=== PATIENT | female | born 1980 | race Caucasian/White ===

== ENCOUNTER → 2018-11-16 | Outpatient (CLI) | payer BC ==
--- NOTE | 2018-11-16 09:38 | CT ---
EXAMINATION TYPE: CT abdomen wo con DATE OF EXAM: 11/16/2018 COMPARISON: None HISTORY: 38-year-old female right lower quadrant pain, Right mid abdominal pain TECHNIQUE: Contiguous axial scanning of the abdomen without IV contrast. Coronal and sagittal reconst ructions performed. CT DLP: 1263.2 mGycm Automated exposure control for dose reduction was used. FINDINGS: Heart normal size without pericardial effusion. Lung bases clear without pleural effusion. Liver borderline in size measuring 17.1 cm. There may be a degree of underlying mild fatty infiltrati on. Gallbladder measures at the upper limits of normal in caliber at 3.8 cm wide. No surrounding inflamma tion. Adrenal glands, kidneys, and pancreas appear within normal limits. Spleen mildly enlarged at 14.6 cm with anterior splenule. No dilated small bowel, free fluid, or free air. There is mild central caroline mesentery, axial image 43. Some prominent left paramedian mesenteric lymp h nodes in the upper mid abdomen measuring up to 6 mm. There is some mild fat stranding also seen adjacent to the cecum but no abnormal wall thickening seen in this region. The pelvis is not included on this exam. Bones: No osseous destructive process. IMPRESSION: 1. SOME CENTRAL CAROLINE MESENTERY COULD REFLECT A MILD MESENTERIC PANNICULITIS. 3 - 6 MONTH FOLLOW-UP C AN BE PERFORMED EARLY LYMPHOMA CAN HAVE A SIMILAR APPEARANCE. 2. SOME MILD FAT STRANDING IS ALSO SEEN ADJACENT TO THE CECUM BUT NO ABNORMAL WALL THICKENING IS SEEN IN THIS REGION. NO INFLAMED APPENDIX IS IDENTIFIED. THE PELVIS IS NOT INCLUDED ON THIS EXAM. 3. MILD FATTY INFILTRATION OF THE LIVER. MILD SPLENIC MEGALY (14.6 CM).
== END | disposition home or self-care (01) ==
LOC: RADCTMAIN 08:23
PROVIDERS: ATTEND Family Medicine
DX: K76.0 Fatty (change of) liver, not elsewhere classified (principal); R16.1 Splenomegaly, not elsewhere classified
CPT/HCPCS: 74150